=== PATIENT | female | born 1995 | race Caucasian/White ===

== ENCOUNTER 2017-10-24 05:55 | Emergency (ER) | payer MEDICAID ==
[~2017-10-24] VITALS: Ht 152.4 cm; Wt 42.4 kg
[2017-10-24 06:06] VITALS: Ht 152.4 cm; Wt 42.4 kg
[2017-10-24 08:42] VITALS: BP 119/74
== END 2017-10-24 08:42 | disposition home or self-care (01) ==
LOC: ED 05:55 → EDSEX 05:55 → ED 08:42
DX: R10.30 Lower abdominal pain, unspecified (principal)
CPT/HCPCS: J1885